=== PATIENT | female | born 1975 | race Caucasian/White ===

== ENCOUNTER 2018-07-09 00:14 | Emergency (ER) | payer MEDICAID ==
[2018-07-09 00:31] VITALS: BP 144/98
[2018-07-09] MEDS ORDERED: Ketorolac 60 MG/2 ML SDV IM ONE (00:41)
[2018-07-09] MEDS ORDERED: HYDROmorphone 1 MG/ML Syringe IVPUSH ONE (00:46)
[2018-07-09] MEDS ORDERED: Ketorolac 30 MG/ML SDV IVPUSH ONE (00:46)
[2018-07-09] MEDS ORDERED: Ondansetron 4 MG/2 ML SDV IVPUSH ONE (00:46)
[2018-07-09] MEDS ORDERED: Sodium Chloride 0.9% 10 ML Syringe FLUSH PRN (00:51)
--- NOTE | 2018-07-09 00:52 | EDM.PDOC ---
ED HPI GENERAL MEDICAL PROBLEM - General Chief Complaint: Flank Pain Stated Complaint: MAYBE KIDNEY STONES Time Seen by Provider: 07/09/18 00:40 Source of Information: Reports: Patient, Old Records, RN History Limitations: Reports: No Limitations - History of Present Illness INITIAL COMMENTS - FREE TEXT/NARRATIVE: 43 yo female here with L flank pain for about 21 hrs that has migrated now to the R side of her abdomen. Has nausea without vomiting. No fever. Has a pHx of an ectopic preg so one of her fallopian tubes is now gone, has a hx of appendectomy, and a hx of kidney stones. Denies recent dysuria or hematuria. Pain not worse with coughing. Onset: Gradual Onset Date: 07/08/18 Onset Time: 03:00 Duration: Hour(s): (21), Getting Worse Location: Reports: Abdomen (R side), Back (L flank) Quality: Reports: Ache Severity: Severe Improves with: Reports: None Worsens with: Reports: Other (time) Context: Reports: Other (See HPI) Associated Symptoms: Reports: Nausea/Vomiting (no vomiting). 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) left flank/ RLQ Pain Score (Numeric/FACES): 7 - Related Data Allergies Allergy/AdvReac Type Severity Reaction Status Date / Time meperidine HCl [From Demerol] Allergy Seizure Verified 07/09/18 00:27 Home Meds: Home Meds Albuterol [Proair HFA] 8.5 puff PO QID PRN 10/24/14 [History] Cholecalciferol (Vitamin D3) [Vitamin D3] 2,000 tab PO DAILY 10/24/14 [History] Loratadine [Claritin] 10 tab PO DAILY 10/24/14 [History] Multivitamins/Iron/Folic Acid [Cerovite Advanced Formula Tablet] 1 tab PO DAILY 10/24/14 [History] Omeprazole 40 tab PO DAILY 10/24/14 [History] traZODone 50 tab PO BEDTIME PRN 10/24/14 [History] Fluticasone/Salmeterol [Advair 250-50 Diskus] 2 puff INH BID 07/09/18 [History] Lisdexamfetamine [Vyvanse] 1 tab PO DAILY 07/09/18 [History] Past Medical History Respiratory History: Reports: Asthma Gastrointestinal History: Reports: GERD Other Genitourinary History: Ectopic with removal of fallopian tube. 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: Psychiatric History: Reports: Anxiety, Depression Endocrine/Metabolic History: Reports: Obesity/BMI 30+ - Past Surgical History GI Surgical History: Reports: Hernia Repair/Other Social & Family History - Tobacco Use Smoking Status *Q: Never Smoker - Caffeine Use Caffeine Use: Reports: Coffee - Recreational Drug Use Recreational Drug Use: No ED ROS GENERAL - Review of Systems Review Of Systems: See Below Constitutional: Reports: No Symptoms HEENT: Reports: No Symptoms Respiratory: Reports: No Symptoms Cardiovascular: Reports: No Symptoms Endocrine: Reports: No Symptoms GI/Abdominal: Reports: Abdominal Pain, Flatus, Nausea. Denies: Black Stool, Bloody Stool, Constipation, Diarrhea, Decreased Appetite, Distension, Hematemesis, Hematochezia, Melena, Vomiting : Reports: Flank Pain (left initially, now more R sided abdominal pain.) Musculoskeletal: Reports: No Symptoms Skin: Reports: No Symptoms Neurological: Reports: No Symptoms ED EXAM, GI/ABD - Physical Exam Exam: See Below Exam Limited By: No Limitations General Appearance: Alert, WD/WN, Mild Distress Eyes: Bilateral: Normal Appearance Ears: Normal External Exam, Normal Canal, Hearing Grossly Normal Nose: Normal Inspection, No Blood Throat/Mouth: Normal Inspection, Normal Lips, Normal Oropharynx, Normal Voice, No Airway Compromise Head: Atraumatic, Normocephalic Neck: Normal Inspection Respiratory/Chest: No Respiratory Distress, Lungs Clear, Normal Breath Sounds, No Accessory Muscle Use Cardiovascular: Regular Rate, Rhythm, No Edema GI/Abdominal Exam: Soft, No Distention, No Mass, Tender (RUQ), Abnormal Bowel Sounds (decreased). No: Non-Tender, Distended, Guarding, Rigid, Rebound, Mass Back Exam: Normal Inspection. No: CVA Tenderness (R), CVA Tenderness (L) Extremities: Normal Inspection, Normal Range of Motion, Non-Tender, No Pedal Edema. No: Increased Warmth Neurological: Alert, Oriented, CN II-XII Intact, Normal Cognition, No Motor/ Sensory Deficits Psychiatric: Normal Affect, Normal Mood Skin Exam: Warm, Dry, Intact, Normal Color, No Rash Course - Vital Signs Text/Narrative:: Comfortable after treatment. Last Recorded V/S: Last Vital Signs Temp 36.6 C 07/09/18 00:28 Pulse 88 07/09/18 00:28 Resp 20 07/09/18 00:28 BP 144/98 H 07/09/18 00:28 Pulse Ox 98 07/09/18 00:28 - Orders/Labs/Meds Orders: Active Orders 24 hr Category Date Time Status Sodium Chloride 0.9% [Saline Flush] Med 07/09/18 00:51 Active 10 ml FLUSH ASDIRECTED PRN Saline Lock Insert [OM.PC] Routine Oth 07/09/18 00:51 Ordered Medication Orders Sodium Chloride (Saline Flush) 10 ml FLUSH ASDIRECTED PRN PRN Reason: Keep Vein Open Last Admin: 07/09/18 00:56 Dose: 10 ml Labs: Laboratory Tests 07/09/18 07/09/18 07/09/18 Range/Units 00:25 00:56 00:56 WBC 9.0 (4.5-11.0) K/uL RBC 4.04 (3.30-5.50) M/uL Hgb 11.3 L (12.0-15.0) g/dL Hct 35.3 L (36.0-48.0) % MCV 87 (80-98) fL MCH 28 (27-31) pg MCHC 32 (32-36) % Plt Count 293 (150-400) K/uL Sodium 140 (140-148) mmol/L Potassium 4.0 (3.6-5.2) mmol/L Chloride 106 (100-108) mmol/L Carbon Dioxide 26 (21-32) mmol/L Anion Gap 7.9 (5.0-14.0) mmol/L BUN 10 (7-18) mg/dL Creatinine 0.9 (0.6-1.0) mg/dL Est Cr Clr Drug Dosing 66.67 mL/min Estimated GFR (MDRD) > 60 (>60) Glucose 85 (74-106) mg/dL Calcium 9.0 (8.5-10.1) mg/dL Total Bilirubin 0.2 (0.2-1.0) mg/dL AST 18 (15-37) U/L ALT 25 (12-78) U/L Alkaline Phosphatase 78 (46-116) U/L C-Reactive Protein 0.16 (0.0-0.3) mg/dL Total Protein 6.6 (6.4-8.2) g/dL Albumin 3.3 L (3.4-5.0) g/dL Globulin 3.3 (2.3-3.5) g/dL Albumin/Globulin Ratio 1.0 L (1.2-2.2) Urine Color Yellow Urine Appearance Clear Urine pH 5.0 (4.5-8.0) Ur Specific [place] 1.000 L (1.008-1.030) Urine Protein Negative (NEGATIVE) mg/dL Urine Glucose (UA) Normal (NEGATIVE) mg/dL Urine Ketones Negative (NEGATIVE) mg/dL Urine Occult Blood Trace (NEGATIVE) Urine Nitrite Negative (NEGATIVE) Urine Bilirubin Negative (NEGATIVE) Urine Urobilinogen Normal (NORMAL) mg/dL Ur Leukocyte Esterase Small (NEGATIVE) Urine RBC 0-5 (0-5) Urine WBC 5-10 H (0-5) Ur Epithelial Cells Few Amorphous Sediment Not seen Urine Bacteria Moderate Urine Mucus Not seen Meds: Medications Generic Name Dose Route Start Last Admin Trade Name Bennie PRN Reason Stop Dose Admin Sodium Chloride 10 ml 07/09/18 00:51 07/09/18 00:56 Saline Flush FLUSH 10 ml ASDIRECTED PRN Administration Keep Vein Open Discontinued Medications Generic Name Dose Route Start Last Admin Trade Name Bennie PRN Reason Stop Dose Admin Hydromorphone HCl 1 mg 07/09/18 00:46 07/09/18 00:55 Dilaudid IVPUSH 07/09/18 00:47 1 mg ONETIME ONE Administration Sodium Chloride 80 mls @ 3.5 mls/sec 07/09/18 01:36 07/09/18 01:48 Normal Saline IV 07/09/18 01:37 3.5 mls/sec ASDIRECTED STA Administration Iopamidol 132 ml 07/09/18 01:36 07/09/18 01:47 Isovue-300 (61%) IV 07/09/18 01:37 150 ml . DIRECTED STA Administration Ketorolac Tromethamine 60 mg 07/09/18 00:41 Toradol IM 07/09/18 00:42 ONETIME ONE Ketorolac Tromethamine 30 mg 07/09/18 00:46 07/09/18 00:54 Toradol IVPUSH 07/09/18 00:47 30 mg ONETIME ONE Administration Ondansetron HCl 4 mg 07/09/18 00:46 07/09/18 00:52 Zofran IVPUSH 07/09/18 00:47 4 mg ONETIME ONE Administration - Radiology Interpretation Free Text/Narrative:: CT abd/pelvis with IV contrast- CT Results Date: 07/09/18 Departure - Departure Time of Disposition: 02:16 Disposition: Home, Self-Care 01 Condition: Fair Clinical Impression: Kidney stone on left side - Discharge Information *PRESCRIPTION DRUG MONITORING PROGRAM REVIEWED*: No *COPY OF PRESCRIPTION DRUG MONITORING REPORT IN PATIENT CHER: No Instructions: Kidney Stones, [id number] Referrals: Sonia Castorena PA [Primary Care Provider] - Forms: ED Department Discharge Additional Instructions: Take ibuprofen 600 mg every 6 hrs with food for pain relief. Take Zofran as needed for nausea control. Take Percocet as directed for added pain relief. Eat a light diet, but try to stay hydrated. F/U with urology for definitive care. - My Orders Last 24 Hours: My Active Orders 07/09/18 00:51 Sodium Chloride 0.9% [Saline Flush] 10 ml FLUSH ASDIRECTED PRN Saline Lock Insert [OM.PC] Routine - Assessment/Plan Last 24 Hours: My Active Orders 07/09/18 00:51 Sodium Chloride 0.9% [Saline Flush] 10 ml FLUSH ASDIRECTED PRN Saline Lock Insert [OM.PC] Routine
[2018-07-09] MEDS ORDERED: Sodium Chloride 0.9% 80 ML IV STA (01:36)
[2018-07-09] MEDS ORDERED: Iopamidol 612 MG/ML 150 ML Bottle IV STA (01:36)
--- NOTE | 2018-07-09 02:11 | CRLCT ---
INDICATION: Right upper quadrant pain and left flank pain TECHNIQUE: CT Abdomen and pelvis with i.v. contrast. Coronal and sagittal reformats were obtained. CONTRAST: 132 mL Isovue 300 COMPARISON: 10/31/2014 FINDINGS: Lower chest: Unremarkable. Liver: Unremarkable. Spleen: Unremarkable. Pancreas: Unremarkable. Gallbladder: Unremarkable. Kidney: There is a 6 mm calculus present in the proximal left ureter with mild left renal pelviectasis and enhancement of the renal urothelium. The right kidney is unremarkable in appearance and enhancement. Adrenal: Unremarkable. Bowel: Moderate gas and fluid distention of the ascending colon is present measuring 9 cm. The gas is distension of the transverse colon is seen. There is gradual change in caliber of the colon noted. Surgical staple line is seen near the GE junction. Previous appendectomy noted with no significant appendiceal stump identified. Vascular: Unremarkable. Lymph: Unremarkable. Peritoneum: Unremarkable. No pneumoperitoneum is seen. No significant ascites is noted. Pelvis: Unremarkable. Soft tissue: Unremarkable. Bone: Unremarkable for age. IMPRESSIONS: 1. There is a 6 mm calculus present in the proximal left ureter with mild left renal pelviectasis and enhancement of the renal urothelium. Correlation with urinalysis is recommended to exclude infectious pyelitis superimposed on renal obstruction. 2. Moderate gas and fluid distention of the ascending colon is present measuring 9 cm. The gas is distension of the transverse colon is seen. There is gradual change in caliber of the colon noted. Findings and may be due to colonic ileus and close interval follow-up is recommended. Dictated by Elder Ordonez MD @ 07/09/2018 2:10:54 AM Please note that all CT scans at this facility use dose modulation, iterative reconstruction, and/or weight-based dosing when appropriate to reduce radiation dose to as low as reasonably achievable. Dictated by: Elder Ordonez MD @ 07/09/2018 02:11:00 (Electronically Signed)
== END 2018-07-09 02:41 | disposition home or self-care (01) ==
LOC: JP.ED 00:14
DX: N20.1 Calculus of ureter (principal); K21.9 Gastro-esophageal reflux disease without esophagitis; J45.909 Unspecified asthma, uncomplicated; F41.9 Anxiety disorder, unspecified; F32.9 Major depressive disorder, single episode, unspecified; Z79.899 Other long term (current) drug therapy
CPT/HCPCS: 36415; 74177; 80053; 81001; 85027; 86140; 96372; 96374; 96375; 99284; J1170; J1885; J2405; J7030

== ENCOUNTER 2020-04-04 12:52 | Emergency (ER) | payer OTHER, MEDICAID ==
[2020-04-04 13:14] VITALS: BP 128/88; PULSE 100
[2020-04-04] MEDS ORDERED: Ketorolac 60 MG/2 ML SDV IM ONE (13:40)
[2020-04-04] MEDS ORDERED: Ondansetron 4 MG Tab.DIS PO ONE (13:40)
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
== END 2020-04-04 15:00 | disposition home or self-care (01) ==
LOC: JP.ED 12:52
DX: S00.83XA Contusion of other part of head, initial encounter (principal); S09.90XA Unspecified injury of head, initial encounter; J45.909 Unspecified asthma, uncomplicated; K21.9 Gastro-esophageal reflux disease without esophagitis; E66.9 Obesity, unspecified; Z68.29 Body mass index [BMI] 29.0-29.9, adult; Z88.5 Allergy status to narcotic agent; Z79.899 Other long term (current) drug therapy; Y92.009 Unspecified place in unspecified non-institutional (private) residence as the place of occurrence of the external cause; Y04.0XXA Assault by unarmed brawl or fight, initial encounter
CPT/HCPCS: 70450; 70486; 96372; 99284; A9270; J1885; 99283

== ENCOUNTER 2023-08-05 22:09 | Emergency (ER) | payer MEDICAID ==
[2023-08-05 22:39] VITALS: BP 139/72; PULSE 87
[2023-08-05 23:40] LABS: BASOPHILS ABSOLUTE AUTO 0.03 K/uL (0.00-0.10); BASOPHILS PERCENT AUTO 0.3 % (0.1-1.3); EOSINOPHILS ABSOLUTE AUTO 0.13 K/uL (0.00-0.40); EOSINOPHILS PERCENT AUTO 1.5 % (0.0-5.4); HEMATOCRIT 29.4 % (34.3-46.0); HEMOGLOBIN 9.6 g/dL (11.2-15.5); IMMATURE GRAN ABSOLUTE AUTO 0.05 K/uL (0.00-0.23); IMMATURE GRAN PERCENT AUTO 0.6 % (0.0-0.7); LYMPHOCYTES ABSOLUTE AUTO 1.98 K/uL (0.8-3.3); LYMPHOCYTES PERCENT AUTO 22.8 % (11.4-47.7); MEAN CORPUSCULAR HEMOGLOBIN 25.9 pg (31.6-35.5); MEAN CORPUSCULAR HGB CONC 32.7 g/dL (31.6-35.5); MEAN CORPUSCULAR VOLUME 79.2 fL (81.4-99.0); MONOCYTES ABSOLUTE AUTO 0.76 K/uL (0.20-0.90); MONOCYTES PERCENT AUTO 8.8 % (3.3-12.6); NEUTROPHILS ABSOLUTE AUTO 5.73 K/uL (1.0-7.6); PLATELET COUNT,PLT 292 K/uL (130-375); RED BLOOD CELL COUNT 3.71 M/uL (3.77-5.24); WHITE BLOOD CELL COUNT,WBC 8.7 K/uL (3.2-11.0)
[2023-08-05 23:54] LABS: CALCIUM 8.6 mg/dL (8.5-10.1); CREATININE 0.9 mg/dL (0.6-1.0); EST CRCL DRUG DOSING (CG) 63.24 mL/min
== END 2023-08-06 01:01 | disposition home or self-care (01) ==
LOC: JP.ED 22:09
DX: M71.22 Synovial cyst of popliteal space [Baker], left knee (principal); J45.909 Unspecified asthma, uncomplicated; K21.9 Gastro-esophageal reflux disease without esophagitis; E66.9 Obesity, unspecified; Z79.899 Other long term (current) drug therapy; Z79.51 Long term (current) use of inhaled steroids; Z86.19 Personal history of other infectious and parasitic diseases; Z88.8 Allergy status to other drugs, medicaments and biological substances; Z68.37 Body mass index [BMI] 37.0-37.9, adult
CPT/HCPCS: 36415; 80048; 85025; 85379; 93971-LT; 99284